=== PATIENT | male | born 1990 | race American Indian/Alaskan Native ===

== ENCOUNTER 2016-09-30 07:27 | Emergency (ER) | payer OTHER ==
[2016-09-30 07:42] VITALS: BP 128/84
[2016-09-30] MEDS ORDERED: ZITHROMAX PO ONE (10:49)
[2016-09-30] MEDS ORDERED: ROCEPHIN IM ONE (10:49)
[2016-09-30] MEDS ORDERED: XYLOCAINE 1% MPF 5 mL INFILTRATI ONE (10:49)
--- NOTE | 2016-09-30 11:01 | Emergency Department Report ---
HPI - General Chief Complaint: Urogenital-Male Time Seen by Provider: 09/30/16 10:48 - HPI HPI: This is a 26-year-old Afro-[place] male who presents to the emergency department with complaint of a 1-2 day history of some mild penile discharge. He says it is mostly clear. He has some occasional itching and/or burning with urination. He denies any lesions to the penis or scrotum. Patient says he has been sexually active with a long-term partner but does not always use protection. He says that he believes he has a history of previous chlamydia once that was treated. He does not have a primary care doctor. He has not taken anything for symptoms prior to presentation. No recent travel. No sick contacts at home. ED Past Medical Hx - Past Medical History Previous Medical History?: Yes Hx Asthma: Yes - Surgical History Past Surgical History?: Yes Additional Surgical History: tonsil - Social History Smoking Status: Current Every Day Smoker Substance Use Type: Alcohol, Marijuana - Medications Home Medications: Home Medications Medication Instructions Recorded Confirmed Last Taken Type Doxycycline [Vibramycin CAP] 100 mg PO BID #20 tab 06/27/14 Unknown Rx ED Review of Systems ROS: Stated complaint: POSS STD Other details as noted in HPI Comment: All other systems reviewed and negative Constitutional: denies: chills, fever Eyes: denies: eye pain, eye discharge, vision change ENT: denies: ear pain, throat pain Respiratory: denies: cough, shortness of breath, wheezing Gastrointestinal: denies: abdominal pain, nausea, diarrhea Genitourinary: dysuria, discharge Musculoskeletal: denies: back pain, joint swelling, arthralgia Skin: denies: rash, lesions Neurological: denies: headache, weakness, paresthesias Physical Exam - Physical Exam Vital Signs: Vital Signs 09/30/16 07:40 Temperature 98.2 F Pulse Rate 63 Respiratory 16 Rate Blood Pressure 128/84 O2 Sat by Pulse 98 Oximetry Physical Exam: GENERAL: The patient is well-developed well-nourished. HEENT: Normocephalic. Atraumatic. Extraocular motions are intact. Patient has moist mucous membranes. NECK: Supple. Trachea is midline. CHEST/LUNGS: Clear to auscultation. There is no respiratory distress noted. HEART/CARDIOVASCULAR: Regular. There is no tachycardia. There is no gallop rub or murmur. ABDOMEN: Abdomen is soft, nontender. Patient has normal bowel sounds. SKIN: Skin is warm and dry. No lesions seen to the penis or scrotum. : There is no discharge seen coming from the urethra. No lesions seen to the circumcised penis or to his scrotum. NEURO: The patient is awake, alert, and oriented. The patient is cooperative. The patient has no focal neurologic deficits. The patient has normal speech. MUSCULOSKELETAL: There is no tenderness or deformity. There is no limitation range of motion. There is no evidence of acute injury. ED Course Vital Signs 09/30/16 07:40 Temperature 98.2 F Pulse Rate 63 Respiratory 16 Rate Blood Pressure 128/84 O2 Sat by Pulse 98 Oximetry ED Medical Decision Making - Medical Decision Making 26-year-old male presents to the emergency department with a few days of some dysuria and penile discharge. Does have a history of previous chlamydia. Patient treated prophylactically for gonorrhea and chlamydia with Rocephin and azithromycin. Discussed safe sex practices. Urinalysis shows about 15 white blood cells in the urine which is not significant for a urinary tract infection but more likely secondary to urethritis, which the patient has just been treated for. No lesions seen on the genitals. Vital signs stable. Patient given a referral for primary care. He will return with any worsening of his symptoms or any acute distress. - Differential Diagnosis gonorrhea, chlamydia, syphilis, UTI Critical Care Time: No Critical care attestation.: If time is entered above; I have spent that time in minutes in the direct care of this critically ill patient, excluding procedure time. ED Disposition Clinical Impression: Urethritis Disposition: DISCHARGED TO HOME OR SELFCARE Is pt being admited?: No Condition: Stable Instructions: Nonspecific Urethritis in Men (ED), Sexually Transmitted Diseases (ED), Safe Sex (ED) Additional Instructions: Please follow-up with a primary care doctor in the next few days. You need to avoid any further sexual activity for at least 7-9 days since getting the medication. You should use protection for any further sexual activity after that. Return to the emergency department with any worsening of your symptoms or any acute distress. Referrals: PRIMARY CARE, [Primary Care Provider] - 3-5 Days [facility] [Outside] - 3-5 Days Forms: STI Treatment and Prevention Time of Disposition: 12:25
[2016-09-30 12:19] LABS: Bacteria,Urine 1+ /HPF (Negative); Bilirubin,Urine NEG (Negative); Blood,Urine NEG (Negative); Ketones,Urine NEG (Negative); Leukocyte Esterase,Urine SM (Negative); Mucus,Urine 2+ /HPF; Nitrite,Urine NEG (Negative); Protein,Urine <15 mg/dL mg/dL (Negative); Urobilinogen,Urine < 2.0 mg/dL (<2.0)
== END 2016-09-30 12:40 | disposition home or self-care (01) ==
LOC: ED 07:27
DX: N34.2 Other urethritis (principal); J45.909 Unspecified asthma, uncomplicated; F17.200 Nicotine dependence, unspecified, uncomplicated; F12.10 Cannabis abuse, uncomplicated
CPT/HCPCS: 81001; 96372; 99283; J0696

== ENCOUNTER 2020-12-01 09:09 | Emergency (ER) | payer SELFPAY ==
[2020-12-01 09:29] VITALS: BP 137/105
== END 2020-12-01 11:00 | disposition left against medical advice (07) ==
LOC: ED 09:09
DX: R42 Dizziness and giddiness (principal); R06.02 Shortness of breath; R11.10 Vomiting, unspecified; Z53.21 Procedure and treatment not carried out due to patient leaving prior to being seen by health care provider